=== PATIENT | male | born 1985 | race Caucasian/White ===

== ENCOUNTER → 2021-03-17 | Outpatient (CLI) | payer OTHER ==
--- NOTE | 2021-03-17 14:24 | MR ---
EXAMINATION TYPE: MR shoulder LT wo con DATE OF EXAM: 03/17/2021 COMPARISON: None HISTORY: Left shoulder pain and numbness down arm for 6 months TECHNIQUE: Multiplanar, multisequence imaging of the left shoulder is performed without contrast. FINDINGS: Rotator Cuff: Intact, no chucho rotator cuff tear. There is some abnormal thickening of the rotator cu ff, abnormal increased intrinsic signal. Acromioclavicular Joint: There is a distal acromial spur. Fluid is present in the subacromial subdelt oid bursa. There is arthropathy at the acromioclavicular joint causing some mass effect on the muscul otendinous junction of supraspinatus. Glenohumeral Joint: Intact Labrum: The labrum appears grossly intact given limitation of non-arthrogram study. Biceps Tendon: The long head of biceps is in normal location within bicipital groove, some minimal fl uid present along the tendon. Bone marrow signal: No focal abnormal marrow signal is appreciated. Other: No additional significant abnormality is appreciated. IMPRESSION: Correlate for tendinosis of the rotator cuff, impingement
== END | disposition home or self-care (01) ==
LOC: RADMRIMAIN 08:42
PROVIDERS: ATTEND Internal Medicine
DX: M25.512 Pain in left shoulder (principal); R20.0 Anesthesia of skin